=== PATIENT | female | born 1980 | race African-American/Black ===

== ENCOUNTER 2025-07-11 09:08 | Outpatient (AMB) | payer OTHER, SELFPAY ==
--- NOTE | 2025-07-11 09:13 | MHC.OFFVIS ---
Intake Visit Reasons: 1 yr Allergies hydroxyzine (From Vistaril) Allergy (Unknown, Verified 07/11/25 09:14) Unknown Medication List - Last Reconciled 07/11/25 by Donna Hood CNP sumatriptan succinate 50 mg PO PRN HPI Comments Details: 45-year-old woman with depression, anxiety, PTSD, and migraine. She was doing okay. Migraines were happening 2-3x/month with photophobia, sonophobia, and nausea. Triggers include heat, humidity, pressure changes, and stress. She had some stress. She worked at [email or web address] for 15 years. Sumatriptan usually helped, but she sometimes had to repeat dose. Sleep was not so good. [facility] Medical History (Updated 07/11/25 @ 09:15 by Donna Hood CNP) Acute insomnia Anxiety Depression Migraine without aura Review of Systems Const Denies chills, Denies daytime sleepiness, Reports difficulty sleeping, Denies fatigue, Denies fever(s), Denies frequent falls, Reports headache(s), Denies increased appetite, Denies poor appetite, Denies snoring, Denies weakness, Denies weight gain and Denies weight loss Eyes Denies loss of vision ENT Denies vertigo, Denies dizziness and Reports headache(s) Card Denies chest pain at rest, Denies chest pain with activity, Denies syncope, Denies leg edema and Denies palpitations Resp Denies snoring GI Denies constipation, Denies heartburn, Denies diarrhea and Denies nausea Denies urinary frequency, Denies urinary incontinence and Denies urinary urgency Musc Denies abnormal gait, Denies numbness and Denies tingling Skin/Breast Denies dry skin and Denies rash Neuro Denies abnormal gait, Denies vertigo, Denies dizziness, Denies syncope, Denies frequent falls, Reports headache(s), Denies lack of coordination, Denies loss of vision, Denies memory loss, Denies numbness, Denies restless legs, Denies seizure-like activity, Denies tingling, Denies paresthesias, Denies tremor(s) and Denies weakness Psych Denies anxiety, Denies depression, Denies auditory hallucinations, Denies memory loss, Denies visual hallucinations and Denies suicidal ideation Endo Denies fatigue and Denies palpitations Physical Exam Const Other: General Appearance:? normal, in no acute distress. Skin:? no rashes, no significant birthmarks. Heart:? S1, S2 normal, no murmurs. Lungs:? clear anteriorly and posteriorly. Extremities:? no edema. Psych:? alert, oriented, cognitive function intact, cooperative with exam. Neuro Other: Mental Status:?Normal attention, orientation, memory and affect.? Cranial Nerves:?Pupils are equal, round and reactive to light. External occular muscles are intact. Visual estrada are full. Face is symmetrical. Facial sensations are normal. Tongue is midline. Palate elevates symmetrically. Shoulder shrugging is normal. Hearing to bedside conversation is normal. Sensory Exam:?....? Coordination:?No ataxia,?no titubation.? Gait Exam: Within normal limits. Extrapyramidal System:?No tremor, rigidity with normal facial expressions.? Pronator Drift:?Not present.? Involuntary Movements:?No tremors seen.? Speech:?Normal.? Assessment & Plan Assessment & Plan (1) Migraine without aura: Code(s): G43.009 - Migraine without aura, not intractable, without status migrainosus Category: Medical Qualifiers: Status migrainosus presence: without status migrainosus Intractability: not intractable Qualified Code(s): G43.009 - Migraine without aura, not intractable, without status migrainosus Plan: Continue sumatriptan 50mg 1 tablet as needed for migraine. May take sumatriptan with 1 Aleve or Excedrin with cup of coffee or tea. Start ondansetron 4mg 1 tablet as needed for nausea/vomiting, use/side effects reviewed. Medications: New sumatriptan succinate take 1 tab at onset of headache; if no relief may repeat 1 tab after at least 2 hrs; PO 10 tabs 5RF 30 days ondansetron 4 mg PO DAILY PRN 10 tabs 5RF nausea and vomiting 30 days Discontinued sumatriptan succinate Discontinued Reason: Order 50 mg PO PRN Coding Level of Care Code Est Pt Level 4 (64254) Diagnoses Migraine without aura and without status migrainosus, not intractable G43.009 Status migrainosus presence: without status migrainosus Intractability: not intractable
--- OUTSIDE RECORDS SUMMARY | 2025-07-11 09:41 | XMS_ITS ---
Author Name [facility] Organization Unknown Care Team Organization Name Specialty Phone Email Start Date End Da wes [facility] Deniz Blount Primary [facility] 10/07/2022 07/18/2024
--- OUTSIDE RECORDS SUMMARY | 2025-07-11 09:41 | XMS_ITS | Clinical Summary ---
Author Organization [place] [address] [address] [facility] Address [facility] [place] [address] Phone Care Team Providers Care Assembly Inspector Helper Name Role Phone Deniz Blount MD Primary Care Provider [phone] Allergies No known active allergies Surgical History Surgery Date Site/Laterality Comments SECTION 1998 PROCEDURE: HISTORICAL DELIVERY TUBAL LIGATION 1999 PROCEDURE: HISTORICAL TUBAL LIGATION APPENDECTOMY 11 years old PROCEDURE: HISTORICAL APPENDECTOMY OTHER SURGICAL HISTORY 12 years old PROCEDURE: NM EXC BREAST LES PREOP PLMT RAD MARKER OPEN 1 LES; COMMENT: cyst in right breast CERVICAL BIOPSY W/ LOOP ELECTRODE EXCISION 2001 PROCEDURE: CERVIAL LEEP CONE BIOPSY [facility] PATHOLOGY EX PARTIAL HYSTERECTOMY 10/29/16 big fibroids PROCEDURE: NM SUPRACERVICAL ABDL HYSTER W/WO RMVL TUBE OVARY; COMMENT: cervix&ovaries preserved BREAST SURGERY age 12 Right PROCEDURE: NM UNLISTED PROCEDURE BREAST; COMMENT: lump b9 FINE NEEDLE ASPIRATION 2014 Right PROCEDURE: FINE NDLE ASPRTN W/IMAGING GUIDANCE; COMMENT: b9 FINE NEEDLE ASPIRATION 2020 Right PROCEDURE: FINE NDLE ASPRTN W/IMAGING GUIDANCE; COMMENT: b9 FINE NEEDLE ASPIRATION 08/06/2021 Right PROCEDURE: FINE NDLE ASPRTN W/IMAGING GUIDANCE BREAST BIOPSY 08/26/2021 Right PROCEDURE: NM BX BREAST W/DEVICE 1ST LESION ULTRASOUND GUID; COMMENT: fibroadenoma OTHER SURGICAL HISTORY 01/11/2024 PROCEDURE: NM EXCISION CERVICAL STUMP VAGINAL APPROACH; COMMENT: Robot assisted laparoscopic excision of residual cervical stump. Medical History Medical History Date Comments Cervical cancer (CMS/HCC V24 , CMS/HCC V28) 2001 DX:Cervical cancer (HCC) Anemia 2010 DX:Anemia; COMME NT: cannot tolerate iron pills PTSD (post-traumatic stress disorder) DX:PTSD (post-traumatic stre ss disorder) Anxiety and depression DX:Anxiet y and depression Other specified personal his tory presenting hazards to health(V15.89) 10-12 yrs ago DX:Other specifie d personal history presenting hazards to health(V15.89) History of hyperthyroidism 05/07/2016 DX:Hi story of hyperthyroidism Thyroid disease DX:Thyroid disea se BRCA negative DX:BRCA negative Family History Medical History Relation Name Comments Breast cancer Aunt 1 m ? age 4 maternal aun ts Breast cancer Aunt 2 maternal aunt- unilateral Other: Other Brother had negative co lonoscopy at age 35 No Known Problems Daughter 1 No Known Problems Daughter 2 Other: Other Father estranged-no in formation Other: Other Maternal Grandfather estrang ed-no information Breast cancer Maternal Grandmother ? age second primary br ca at age 61- Breast cancer Mother 40's unilateral No Known Problems Other No Known Problems Paternal Grandfather No Known Problems Paternal Grandmother No Known Problems Sister No Known Problems Son Prostate cancer Uncle maternal gre at uncle Blindness Neg Hx Cataracts Neg Hx Glaucoma Neg Hx Macular degeneration Neg Hx Strabismus Neg Hx Relation Name Status Comments Aunt 1 m ? age Alive Aunt 2 Brother Daughter 1 Alive born 1997, klep tomania, PTSD Daughter 2 Alive born 1998, C-se ctioned, healthy Father unknown Maternal Grandfather Maternal Grandmother ? age Mother 40's Alive Breast CA (pt i s BRCA neg) Other Paternal Grandfather Paternal Grandmother Sister Son Alive born 1994, PTSD , depression Uncle Social History Tobacco Use Types Packs/Day Years Used Date Smoking Tobacco: Every Day Cigarettes Smokeless Tobacco: Never Alcohol Use Standard Drinks/Week Comments Yes 0 (1 standard drink = 0.6 oz pur e alcohol) Comments Unknown Sex and Gender Information Value Date Recorded Sex Assigned at Not on file Legal Sex Female 4:33 AM EST Gender Identity Not on file Sexual Orientation Not on file Obstetrics History Last Filed Vital Signs Vital Sign Reading Time Taken Comments Blood Pressure 107/64 03/03/2025 10:51 AM EDT Pulse 73 03/03/2025 10:51 AM EDT Temperature 36.1 C (97 F) 03/03/2025 10:51 AM EDT Respiratory Rate - - Oxygen Saturation 98% 03/03/2025 10:51 AM EDT Inhaled Oxygen Concentration - - Weight 65.3 kg (144 lb) 03/24/2024 3:02 PM EDT Height 154.9 cm (5' 1 ) 03/24/2024 10:25 AM EDT Body Mass Index 27.21 03/24/2024 10:25 AM EDT Plan of Treatment Health Maintenance Due Date Last Done Comments Hepatitis B Vaccines (1 of 3 - 19+ 3-dose series) 1997 Pneumococcal Vaccine: Pediatrics (0 to 5 Years) and At-Risk Patients (6 to 49 Years) (1 of 2 - PCV) 1997 Colorectal Cancer Screening: Colonoscopy 11/08/2022 HIV Screening 11/08/2022 Hepatitis C Screening 11/08/2022 Social Influencers of Health Screening 11/08/2022 DTaP,Tdap,and Td Vaccines (2 - Td or Tdap) 07/13/2024 07/13/2014 COVID-19 Vaccine ( season) 2024 10/17/2023, 08/15/2022, 10/22/2021, Additional history exists Cervical Cancer Screening: Pap Smear 07/31/2024 07/31/2021, 04/20/2018 Depression Screening 11/30/2024 Influenza Vaccine (#1) 2025 , 09/02/2021, 10/09/2020, Additional history exists Breast Cancer Screening 09/22/2025 09/22/20 23, 09/19/2022, 09/02/2021, Additional history exists HIB Vaccines Aged Out No longer eligi ble based on patient's age to complete this topic HPV Vaccines Aged Out No longer eligi ble based on patient's age to complete this topic Hepatitis A Vaccines Aged Out No long er eligible based on patient's age to complete this topic IPV Vaccines Aged Out No longer eligi ble based on patient's age to complete this topic MMR Vaccines Aged Out No longer eligi ble based on patient's age to complete this topic Meningococcal ACWY Vaccine Aged Out N o longer eligible based on patient's age to complete this topic Meningococcal B Vaccine Aged Out No l onger eligible based on patient's age to complete this topic RSV Immunization Patients Under 20 months Aged Out No longer eligible based on patient's age to complete this topic Varicella Vaccines Aged Out No longer eligible based on patient's age to complete this topic Procedures Procedure Name Priority Date/Time Associated Diagnosis Comments SCREENING MAMMOGRAPHY BI 2-VIEW BREAST INC CAD Routine 09/22/2023 2:08 PM EDT Encounter for screening mammogram for malignant neoplasm of breast PAP SMEAR Routine 07/31/2021 from Last 3 Months or Most Recently Relevant to Health Maintenance Results * SCREENING MAMMOGRAPHY BI 2-VIEW BREAST INC CAD (09/22/2023 2:08 PM EDT) Anatomical Region Laterality Modality Radiographic Sonia ging 09/19/2022 1:11 PM EDT Narrative 10/01/2023 11:51 AM EDT This is a summary report. The complete report is available in the patient's medical record. If you cannot access the medical record, please contact the sending organization for a detailed fax or copy. BIRADS category 2 - Benign findings RECOMMENDATION: Routine annual screening mammography is recommended 3342F BILATERAL 3D DIGITAL SCREENING MAMMOGRAM History: Routine screening. No current breast complaints. Family history of mother, grandmother and aunt Comparison: Multiple priors dating back to 09/05/2018 Technique: Bilateral full-field digital 3D mammography was performed using standard CC and MLO projections CAD was used to evaluate this mammogram. Findings: Density: The breasts are extremely dense which lowers the sensitivity of mammography RIGHT: No suspicious masses, groups of microcalcification or areas of architectural distortion identified. Stable typically benign parenchymal asymmetries. Retroareolar biopsy markers. Scattered right breast masses are waxing and waning from prior exam. LEFT: No suspicious masses, groups of microcalcifications or areas of architectural distortion identified. Stable typically benign parenchymal asymmetries IMPRESSION: : 1. No mammographic evidence of malignancy. BIRADS: Recommendation: Routine annual screening mammography, patient may be eligible for screening breast MRI due to strong family history and dense breast Procedure Note Jacob Gibbons MD - 01/05/2024 This is a summary report. The complete report is available in thepatient's medical record. If you cannot access the medical record, pleasecontact the sending organization for a detailed fax or copy. BIRADS category 2 - Benign findings RECOMMENDATION: Routine annual screening mammography is recommended 3342F BILATERAL 3D DIGITAL SCREENING MAMMOGRAM History: Routine screening. No current breast complaints. Family historyof mother, grandmother and aunt Comparison: Multiple priors dating back to 09/05/2018 Technique: Bilateral full-field digital 3D mammography was performed usingstandard CC and MLO projections CAD was used to evaluate this mammogram. Findings: Density: The breasts are extremely dense which lowers the sensitivityof mammography RIGHT: No suspicious masses, groups of microcalcification or areas ofarchitectural distortion identified. Stable typically benign parenchymalasymmetries. Retroareolar biopsy markers. Scattered right breast massesare waxing and waning from prior exam. LEFT: No suspicious masses, groups of microcalcifications or areas ofarchitectural distortion identified. Stable typically benign parenchymalasymmetries IMPRESSION: : 1. No mammographic evidence of malignancy. BIRADS: Recommendation: Routine annual screening mammography, patient may beeligible for screening breast MRI due to strong family history and densebreast Kiah Crocker DO IMG XR PROCEDURES Edited Result - Final * Pap smear (07/31/2021) 07/31/2021 Narrative HISTORICAL TESTING LAB RESULTING AGENCY - 08/13/2021 3:10 PM EDT [id number] THINPREP PAP, IMAGED: ATYPICAL SQUAMOUS CELLS OF UNDETERMINED SIGNIFICANCE (ASCUS) . SHIFT IN FIORELLA SUGGESTIVE OF BACTEIAL VAGINOSIS. KAMERON NEIL , EVI(ASCP) (CASE SCREENED 08 12 2021) CINDY BOLAÑOS M.D. , PATHOLOGIST (CASE ELECTRONICALLY SIGNED 08 12 2021) RESULT OF APTIMA HIGH RISK HPV ASSAY: HIGH RISK HPV: POSITIVE (SEROTYPES 16,18,31,33,35,39,45,51,52,56,58,59,66,68) RESULTS OF APTIMA HPV 16 AND 18/45 GENOTYPE ASSAY: HPV 16: NEGATIVE HPV 18/45: POSITIVE COMPLETED ON 2021-08-07 ADEQUACY: SATISFACTORY ENDOCERVICAL/TRANSFORMATION ZONE COMPONENT PRESENT. SOURCE: THINPREP PAP HPV ANY DX: REFLEX 16 AND 18, CERVICAL, IMAGED CLINICAL INFORMATION: HPV ANY DIAGNOSIS. 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
== END 2025-07-11 09:28 | disposition home or self-care (01) ==
LOC: HO.HSM 09:09
PROVIDERS: PCP Internal Medicine; Referring Provider Internal Medicine; Visit Provider Registered Nurse
DX: G43.009 Migraine without aura, not intractable, without status migrainosus (principal)
CPT/HCPCS: 99214

== ENCOUNTER → 2025-07-11 09:08 | Outpatient (BNVA) | payer OTHER, SELFPAY | PROVIDERS: PCP Internal Medicine; Referring Provider Internal Medicine; Visit Provider Registered Nurse | DX: G43.009 Migraine without aura, not intractable, without status migrainosus (principal); Z79.899 Other long term (current) drug therapy | CPT/HCPCS: 99212 ==